=== PATIENT | female | born 1960 | race Caucasian/White ===

== ENCOUNTER 2018-09-23 13:57 | Emergency (ER) | payer MEDICAID ==
[~2018-09-23] VITALS: Ht 154.9 cm; Wt 60.0 kg
[2018-09-23] MEDS ORDERED: AMPICILLIN SOD/SULBACTAM NA 3 G in SODIUM CHLORIDE 0.9% 100 ML IV STA (14:40)
[2018-09-23] MEDS ORDERED: SODIUM CHLORIDE 0.9% 1,000 ML IV ONE (14:45)
[2018-09-23] MEDS ORDERED: KETOROLAC 15MG/ML VIAL IV ONE (14:45)
[2018-09-23 15:03] LABS: BASOPHILS % 0.5 % (0.0-2.0); EOSINOPHILS % 0.9 % (0.0-5.0); HEMATOCRIT. 36.4 % (36.0-48.0); HEMOGLOBIN. 12.5 g/dL (12.0-16.0); LYMPHOCYTES % 19.6 % (20.0-50.0); MEAN CORPUSCULAR HEMOGLOBIN 31.3 pg (28.0-32.0); MEAN CORPUSCULAR VOLUME 90.7 fL (81.0-99.0); MEAN PLATELET VOLUME 7.7 fl (7.4-10.4); MONOCYTES % 12.4 % (2.0-8.0); NEUTROPHILS % 66.6 % (40.0-76.0); PLATELET 275 x1000/uL (130-400); RED BLOOD CELL COUNT 4.01 mill/uL (4.2-5.4); RED CELL DISTRIBUTION WIDTH 12.5 % (11.6-14.6)
[2018-09-23 15:05] LABS: CHLORIDE 108 mEq/L (98-107)
[2018-09-23 15:06] LABS: PROTHROMBIN TIME 10.5 sec (9.6-11.0)
[2018-09-23 17:30] VITALS: BP 118/64
[2018-09-23] MEDS ORDERED: IOHEXOL-300 100 ML BOTTLE ONE (18:28)
== END 2018-09-23 17:30 | disposition home or self-care (01) ==
LOC: ER 13:57
DX: L03.211 Cellulitis of face (principal); K04.7 Periapical abscess without sinus; K03.2 Erosion of teeth; D72.829 Elevated white blood cell count, unspecified
CPT/HCPCS: 36415; 70491; 80048; 85025; 85610; 96365; 96375; 99284; J0295; J1885; J7030; J7050; Q9967; Z7610